=== PATIENT | male | born 1990 | race African-American/Black ===

== ENCOUNTER 2023-03-18 21:05 | Emergency (ER) | payer MEDICAID ==
[~2023-03-18] VITALS: Ht 172.7 cm; Wt 100.0 kg
[~2023-03-18 21:05] MED LIST: IBUP-2029 MT
[2023-03-19] MEDS ORDERED: IBUPROFEN 400MG TABLET PO ONE (00:45)
[2023-03-19 01:14] VITALS: BP 142/86
[2023-03-19] MEDS ORDERED: IBUP-2028 MT (01:37)
== END 2023-03-19 01:47 | disposition home or self-care (01) ==
LOC: ER 21:05
DX: M25.562 Pain in left knee (principal); M25.561 Pain in right knee; M54.50 Low back pain, unspecified; V49.9XXA Car occupant (driver) (passenger) injured in unspecified traffic accident, initial encounter; Y93.9 Activity, unspecified; Y92.89 Other specified places as the place of occurrence of the external cause; Y99.8 Other external cause status
CPT/HCPCS: 73560; 99283; 99284

== ENCOUNTER 2025-06-23 20:33 | Emergency (ER) | payer OTHER ==
[~2025-06-23] VITALS: Ht 162.6 cm; Wt 96.0 kg
[~2025-06-23 20:33] MED LIST changes: +IBUP-1455 MT; +IBUP-2028 MT; -IBUP-2029 MT
[2025-06-23 20:50] VITALS: O2SAT 100
[2025-06-23] MEDS ORDERED: LIDOCAINE HCL 1% 20ML VIAL INFIL ONE (21:00)
[2025-06-23] MEDS: IBUPROFEN 800MG TABLET PO ONE (21:53)
[2025-06-23 22:47] VITALS: BP 146/85; PULSE 61; RESP 14; TEMP 36.8; O2SAT 99
== END 2025-06-23 22:49 | disposition home or self-care (01) ==
LOC: ER 20:33
DX: S01.511A Laceration without foreign body of lip, initial encounter (principal); R04.0 Epistaxis; X58.XXXA Exposure to other specified factors, initial encounter; Y93.89 Activity, other specified; Y92.89 Other specified places as the place of occurrence of the external cause; Y99.8 Other external cause status
CPT/HCPCS: 99284; 70450; J2003